=== PATIENT | female | born 1945 | race Asian ===

== ENCOUNTER 2021-04-27 09:23 | Emergency (ER) | payer MEDICARE ==
--- NOTE | 2021-04-27 11:41 | Emergency Department Report ---
Blank Doc - Documentation Documentation: 76-year-old female that presents with generalized weakness. 1- This is a initial triage assessment/medical screening only. Full assessment and work-up will be completed once the patient is in proper hospital gown, ED bed and in a private room setting. This initial assessment/diagnostic orders/clinical plan/ treatment(s) is/are subject to change based on pt's health status, clinical progression and re-assessment by fellow clinical providers in the ED. Further treatment and workup at subsequent clinical providers discretion. Patient/guardians urged not to elope from ED as their condition may be serious if not clinically assessed and managed. 2-labs 3-EKG
--- NOTE | 2021-04-30 09:04 | Electrocardiograph Report ---
[facility] Test Date: 2021-04-27 Test Time: 11:01:42 Pat Name: AMPARO NELSON Department: Room: Gender: F Acidizer: JEANCARLOS : 1945 Requested By: ASHA POPE Order Number: [id number] Reading MD: Carlos Shelby Measurements Intervals [place] Rate: 79 P: 62 CA: 169 QRS: 44 QRSD: 92 T: 76 QT: 384 QTc: 439 Interpretive Statements Sinus rhythm Consider left ventricular hypertrophy nonspecific st-t No previous ECG available for comparison Electronically Signed On 04-30-2021 9:03:56 EDT by Carlos Shelby
== END 2021-04-27 15:40 | disposition left against medical advice (07) ==
LOC: ED 09:23
DX: R53.1 Weakness (principal); Z53.21 Procedure and treatment not carried out due to patient leaving prior to being seen by health care provider
CPT/HCPCS: 93005